=== PATIENT | female | born 1995 | race Caucasian/White ===

== ENCOUNTER 2019-07-14 01:03 | Inpatient (IN) ==
[2019-07-14] MEDS ORDERED: *HR* FentaNYL (PF) 100 MCG/2 ML VIAL IVP PRN (01:10)
[2019-07-14] MEDS ORDERED: Metoclopramide 10 MG/2 ML VIAL IVP PRN (01:10)
[2019-07-14] MEDS ORDERED: Lidocaine 1% 20 ML MDV INFILT PRN (01:10)
[2019-07-14] MEDS ORDERED: Famotidine 20 MG/2 ML VIAL IVP PRN (01:10)
[2019-07-14] MEDS ORDERED: Naloxone 0.4 MG/ML INJ IVP PRN (01:10)
[2019-07-14] MEDS ORDERED: Ringers Solution, Lactated 1,000 ML IVC SCH (01:15)
[2019-07-14 01:28] LABS: Basophils % 0.1 %; Eosinophils # 0.1 K/mcL (0.0-0.6); Eosinophils % 0.4 %; Hematocrit 34.6 % (35.3-44.9); Hemoglobin 11.1 g/dL (11.5-15.4); Immature Granulocytes % 0.3 % (0-4); Lymphocytes % 14.3 %; Mean Corpuscular HGB Conc 32.1 g/dL (31.6-35.5); Mean Corpuscular Hemoglobin 27.1 pg (28.0-33.3); Mean Corpuscular Volume 84.4 fL (83.0-100.0); Mean Platelet Volume 9.2 fL (9.4-12.4); Monocytes # 0.6 K/mcL (0.0-1.3); Monocytes % 4.4 %; Platelet Count 379 K/mcL (140-400); Red Cell Distribution Width 15.1 % (11.5-14.5); Segmented Neutrophils % 80.5 %; White Blood Count 13.7 K/mcL (4.3-11.1)
[2019-07-14 01:44] LABS: Amphetamine Screen,Urine Negative ng/mL (Cutoff=1000); Barbiturate Screen,Urine Negative ng/mL (Cutoff=200); Benzodiazepines Screen,Urine Negative ng/mL (Cutoff=200); Cannabinoid Screen,Urine Negative ng/mL (Cutoff = 50); Cocaine Screen,Urine Negative ng/mL (Cutoff= 300); Opiate Screen,Urine Negative ng/mL (Cutoff=300); Phencyclidine Screen,Urine Negative ng/mL (Cutoff=25)
[2019-07-14] MEDS ORDERED: EPHEDrine 50 MG/ML VIAL IVP PRN (01:51)
[2019-07-14] MEDS ORDERED: Bupivacaine-MPF 0.25% 10 ML VIAL EP ONE (01:51)
[2019-07-14] MEDS ORDERED: *HR* FentaNYL (PF) 100 MCG/2 ML VIAL EP ONE (01:51)
[2019-07-14] MEDS ORDERED: *HR* FentaNYL (PF) 100 MCG/2 ML VIAL ONE (01:53)
[2019-07-14] MEDS ORDERED: Bupivacaine-MPF 0.25% 10 ML VIAL ONE (01:53)
[2019-07-14] MEDS: Epidural Premix (fent/bupiv) 110 ML EP SCH ×2 (02:28→07:57)
[2019-07-14] MEDS ORDERED: Oxytocin 20 units/ LR 1000 mL 20 UNIT/1,000 ML BAG IVC SCH ×2 (09:15→17:56)
[2019-07-14] MEDS ORDERED: Ropivacaine/PF 0.2% 20 ML VIAL ONE (12:33)
[2019-07-14] MEDS ORDERED: Ondansetron 4 MG/2 ML VIAL IM ONE (14:13)
[2019-07-14] MEDS ORDERED: Acetaminophen 325 MG TABLET PO PRN (17:56)
[2019-07-14] MEDS: Ibuprofen 600 MG TABLET PO PRN (20:03)
[2019-07-15] MEDS: Ibuprofen 600 MG TABLET PO PRN ×2 (05:23→12:18)
[2019-07-15 06:33] LABS: Basophils % 0.2 %; Eosinophils # 0.1 K/mcL (0.0-0.6); Eosinophils % 0.5 %; Hematocrit 27.6 % (35.3-44.9); Immature Granulocytes % 0.4 % (0-4); Lymphocytes # 2.1 K/mcL (0.6-4.6); Lymphocytes % 11.9 %; Mean Corpuscular HGB Conc 31.9 g/dL (31.6-35.5); Mean Corpuscular Hemoglobin 26.9 pg (28.0-33.3); Mean Corpuscular Volume 84.4 fL (83.0-100.0); Mean Platelet Volume 9.1 fL (9.4-12.4); Monocytes % 5.7 %; Neutrophils # 14.4 K/mcL (1.6-8.9); Platelet Count 282 K/mcL (140-400); Red Blood Count 3.27 M/mcL (3.82-4.97); Red Cell Distribution Width 15.3 % (11.5-14.5); Segmented Neutrophils % 81.3 %; White Blood Count 17.8 K/mcL (4.3-11.1)
[2019-07-15 06:38] LABS: Hemoglobin 8.8 g/dL (11.5-15.4)
[2019-07-15] MEDS ORDERED: Prenatal Vit/FA 1 EACH TABLET PO SCH (09:00)
[2019-07-15 15:14] VITALS: BP 113/69
== END 2019-07-15 18:00 | disposition home or self-care (01) | DRG 806 ==
LOC: 1NENULAB → 1NENUOBS 18:34
PROVIDERS: ADMIT Advanced Practice Midwife; ATTEND Advanced Practice Midwife